=== PATIENT | female | born 1935 | race Caucasian/White ===

== ENCOUNTER 2019-09-11 17:37 | Emergency (ER) | payer MEDICARE, SELFPAY ==
--- NOTE | ~2019-09-11 | XR_ITS ---
EXAMINATION: XR sacrum coccyx min 2V DATE: 09/11/2019 18:40 INDICATION: Sacrum and coccyx pain post fall TECHNIQUE: AP view of the sacrum, AP view of the coccyx and lateral view of the sacrum and coccyx wer e obtained. COMPARISON: Lumbar spine radiographs dated 10/03/2017 FINDINGS: 3 mm anterolisthesis L5 on S1 mild disc height loss. No fractures. Mild bilateral sacroiliac osteoart hritis along with bilateral osteitis condensans ilii. And moderate osteitis pubis. Severe lumbar face t osteoarthritis at L4-L5 and L5-S1. Bilateral hip joint spaces are relatively preserved. IMPRESSION: 1. Degenerative skeletal changes as detailed above. No acute osseous abnormality. Reviewed, dictated and finalized at location A. 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 Degenerative skeletal changes as detailed above. No acute osseous abnormalit y.
[2019-09-11 17:44] VITALS: BP 122/54; PULSE 64; RESP 18; TEMP 36.4; O2SAT 98
--- NOTE | 2019-09-11 19:14 | ED.GENADULT ---
HPI - General Adult General Chief complaint: Fall Stated complaint: fall Time Seen by Provider: 09/11/19 17:49 History of Present Illness HPI narrative: Patient is an 84-year-old female who presents the ER status post fall. She was using her walker backing up to sit down when she lost her balance and fell onto her right buttock. She reports pain over her tailbone. No numbness or tingling to her lower extremities. She was on the ground for 15 minutes before somebody at the care center found her and called EMS. She denies striking her head or losing consciousness. Related Data Home Medications Medication Instructions Recorded Confirmed Lactobacillus acidophilus 1 tablet PO DAILY 06/21/19 08/06/19 acetaminophen 325 mg tablet 325 mg PO Q6H PRN 06/21/19 08/06/19 clopidogrel 75 mg tablet 75 mg PO DAILY 06/21/19 08/06/19 hydroxyzine HCl 25 mg tablet 25 mg PO ONCE tablet 06/21/19 08/06/19 inhalational spacing device #1 each 06/21/19 ipratropium 20 mcg-albuterol 100 2 puff INHALATION PRN PRN 06/21/19 08/06/19 mcg/actuation mist for inhalation irbesartan 150 mg tablet 150 mg PO DAILY 06/21/19 08/06/19 levothyroxine 75 mcg tablet 75 mcg PO DAILY 06/21/19 08/06/19 lidocaine 4 % topical patch 1 patch TOPICAL TID PRN each 06/21/19 08/06/19 memantine 5 mg tablet 5 mg PO QAM 06/21/19 08/06/19 metoprolol succinate 50 mg 50 mg PO DAILY 06/21/19 08/06/19 tablet,extended release 24 hr multivitamin 1 tablet PO DAILY 06/21/19 08/06/19 tolnaftate 1 % topical spray powder 1 spray TOPICAL BID 06/21/19 08/06/19 triamcinolone acetonide 0.1 % 1 applic TOPICAL TID 06/21/19 08/06/19 topical cream cetirizine 10 mg tablet 10 mg PO DAILY PRN tablet 06/26/19 08/06/19 citalopram 40 mg tablet 40 mg PO DAILY tablet 06/26/19 08/06/19 docusate sodium 100 mg capsule 100 mg PO DAILY 06/26/19 08/06/19 polyethylene glycol 3350 17 gram 17 gm PO DAILY 06/26/19 08/06/19 oral powder packet menthol [Biofreeze (menthol)] 1 applic TOPICAL PRN PRN 08/06/19 08/06/19 white petrolatum [Aquaphor Healing] 1 applic TOPICAL BID PRN 08/06/19 08/06/19 Allergies Allergy/AdvReac Type Severity Reaction Status Date / Time Penicillins Allergy Intermediate RASH Verified 09/10/19 11:44 PENTAZOCINE LACTATE Allergy Intermediate SAW STARS Uncoded 09/10/19 11:44 Review of Systems Review of Systems: All systems reviewed & are unremarkable except as noted in HPI and below Constitutional: Constitutional: Denies chills, Denies fever(s) and Denies weakness ENT: Denies nasal congestion and Denies sore throat Musculoskeletal: Musculoskeletal: Denies back pain, Denies joint swelling and Denies muscle cramps Comments: Tailbone pain Neurologic: Denies confusion, Denies focal weakness, Denies numbness and Denies weakness PMFSH Past Medical History Medical History (Updated 09/11/19 @ 19:24 by Landen Heath MD) Bilateral knee pain CVA (cerebral vascular accident) Dyslipidemia HTN (hypertension), benign Hypothyroid Surgical History Surgical History (Updated 09/11/19 @ 19:21 by Landen Heath MD) H/O: hysterectomy History of cholecystectomy History of tonsillectomy Social History Social History Smoking status: Never smoker Alcohol intake: never Substance use: never Substance use type: does not use Gender identity (if verbalized by the patient): Female Exam Narrative: Exam Narrative: GENERAL: Well-appearing, well-nourished, and in no acute distress. HEAD: Normocephalic, atraumatic. ENT: Mucous membranes moist. CHEST: Clear to auscultation. No respiratory distress. HEART: Regular rate and rhythm. Normal peripheral pulses. ABDOMEN: Soft, nontender, nondistende. EXTREMITIES: Normal range of motion and normal strength of bilateral lower extremities. Normal upper extremities. Back: No midline tenderness of the thoracic or lumbar spine. Mild tenderness over low midline sacrum without tenderness near t
[2019-09-11 20:01] VITALS: BP 137/54; PULSE 60; RESP 18; O2SAT 100
== END 2019-09-11 20:04 | disposition home or self-care (01) ==
PROVIDERS: Emergency Provider Emergency Medicine; PCP Family Medicine
DX: M54.5 Low back pain (principal); I11.0 Hypertensive heart disease with heart failure; I50.9 Heart failure, unspecified; Z86.73 Personal history of transient ischemic attack (TIA), and cerebral infarction without residual deficits; W19.XXXA Unspecified fall, initial encounter
CPT/HCPCS: 72220; 99283

== ENCOUNTER 2020-05-07 15:22 | Observation (INO) | payer MEDICARE, SELFPAY ==
[2020-05-07] VITALS (7 sets, daily range): BP systolic 119–169; BP diastolic 61–95; PULSE 76–98; RESP 16–18; TEMP 36.6–36.7; O2SAT 95–99; BMI 32.4
--- NOTE | ~2020-05-07 | MR_ITS ---
EXAMINATION: MR lumbar spine wo con DATE: 05/10/2020 07:28 INDICATION: Right hip and pelvic pain radiating throughout the medial right leg. Complete tear of the right iliopsoas tendon. TECHNIQUE: Magnetic resonance imaging (MRI) of the lumbar spine was performed without intravenous con trast. Sequences included sagittal T2-weighted FSE, sagittal T2-weighted FS FSE, sagittal T1-weighted FSE, and axial T2-weighted FSE. COMPARISON: Lumbar spine radiographs dated 10/03/2017 FINDINGS: 1-2 mm anterolisthesis L4 on L5 and 3 mm anterolisthesis L5 on S1. Vertebral body heights are normal. T1 hyperintense hemangioma at L1. Otherwise normal marrow signal. 9 x 5 mm increased fluid signal in tensity lesion with peripheral low T1 and T2 signal underlying the superior endplate of L3. Mild disc height loss at T10-T11 and L5-S1 mild disc desiccation with minimal disc height loss at L1-L2 throug h L4-L5. The conus medullaris terminates at L1. There is normal signal in the caudal spinal cord. Mustapha ateral T2 hyperintense renal cysts the larger on the right is partially visualized measuring at least 4.5 cm. Increasing along the partially visualized right psoas and visualized iliac is muscles consis tent with muscle strain. See separate pelvis MRI from one day prior for further detail. The following disc levels are specifically discussed: T12-L1: The disc does not extend beyond the endplate margin. There is mild bilateral facet joint oste oarthritis. There is no neural foraminal stenosis. There is no central canal stenosis. L1-L2: Disc is mildly bulging. There is mild bilateral facet joint osteoarthritis. There is no neural foraminal stenosis. There is minimal central canal stenosis. L2-L3: Disc is mildly bulging most prominent at the bilateral foraminal zones. There is mild bilatera l facet joint osteoarthritis. There is mild left and minimal right neural foraminal stenosis. There i s no central canal stenosis. L3-L4: Disc is mildly bulging most prominent at the bilateral foraminal zones. There is moderate bila teral facet joint osteoarthritis. There is mild bilateral neural foraminal stenosis. There is no cent ral canal stenosis. L4-L5: Disc is bulging. There is hypertrophy of the ligamentum flavum. There is severe bilateral face t joint osteoarthritis. There is mild bilateral neural foraminal stenosis. There is minimal central c anal stenosis. L5-S1: Disc is bulging. There is severe bilateral facet joint osteoarthritis. There is mild right ayaka ral foraminal stenosis. There is no central canal stenosis. IMPRESSION: 1. Mild to moderate lumbar spondylosis. 2. Subcentimeter indeterminate lesion underlying the superior endplate of L3 most likely representing either a small Schmorl's node or atypical hemangioma. If there is been history of prior malignancy w ould also include metastatic disease. If indicated could consider bone scan to assess for any additio nal bone lesions. 3. Edema in the right psoas and iliac is muscles consistent with muscle strain. See MRI report from 1 for further detail. Reviewed, dictated and finalized at location A. IMPRESSION: 1. Mild to moderate lumbar spondylosis. 2. Subcentimeter indeterminate lesion underlying the superior endplate of L3 mo st likely representing either a small Schmorl's node or atypical hemangioma. If there is been history of prior malignancy would also include metastatic diseas e. If indicated could consider bone scan to assess for any additional bone lesi ons. 3. Edema in the right psoas and iliac is muscles consistent with muscle strain. See MRI report from 05/09/2020 for further detail.
--- NOTE | ~2020-05-07 | CT_ITS ---
EXAMINATION: CT pelvis wo con EXAM DATE: 05/07/2020 18:36 INDICATION: Right hip and pelvic pain . TECHNIQUE: Spiral CT pelvis was performed without contrast. Axial, coronal and sagittal images wer e reviewed. The dose-length product (DLP) for this examination was 634.61 mGy-cm. The exposure was tailored according to patient size (auto mA exposure control), and iterative reconstruction (ASIR) wa s used as additional dose reduction technique. There is no prior study for comparison. FINDINGS: The appendix is normal. The uterus is not identified and has likely been surgically resecte d. Small to moderate right, small left inguinal fat-containing hernias. Bladder is unremarkable. Mode rate aortoiliac arterial sclerosis. Visualized bowel is unremarkable. There is mild bilateral hip angelica chas osteoarthritis. IMPRESSION: 1. No acute pelvic, hip findings. 2. Fat-containing inguinal hernias. 3. Mild hip osteoarthritis. Reviewed, dictated and finalized at location A.
--- NOTE | ~2020-05-07 | US_ITS ---
EXAMINATION: US venous doppler [facility] DATE: 05/08/2020 09:18 INDICATION: Right lower limb swelling. TECHNIQUE: Grayscale ultrasound images without and with compression and Doppler ultrasound images of the bilateral lower extremity veins were obtained. COMPARISON: None. FINDINGS: The visualized portions of right external iliac vein, common femoral vein, profunda (deep) femoral ve in, femoral vein, popliteal vein, peroneal veins, posterior tibial veins, and greater saphenous vein outflow are patent. The visualized portions of left common femoral vein, profunda femoral vein, femoral vein, popliteal v ein, peroneal veins, posterior tibial veins, and greater saphenous vein outflow are patent. IMPRESSION: 1. No deep venous thrombosis. Reviewed, dictated and finalized at location A.
--- NOTE | ~2020-05-07 | XR_ITS ---
EXAMINATION: XR knee RT 3V EXAM DATE: 05/07/2020 16:02 INDICATION: No known recent injury provided at this time. Pain of the right knee. TECHNIQUE: Three projections of the right knee. Comparison is made to prior examination from 03/20/2013 . FINDINGS: No evidence osteochondral defect or joint body in the right knee joint. There is a small joint effusion. There is mild to moderate tricompartmental primary osteoarthritis, mild progression compared to 2012. There are no acute fractures or dislocations identified. There is no subcutaneous gas. The soft tissue is unremarkable. There are no radiopaque foreign bodies. IMPRESSION: 1. Mild to moderate radius arthritis. 2. Small joint effusion. Reviewed, dictated and finalized at location A.
--- NOTE | ~2020-05-07 | XR_ITS ---
EXAMINATION: XR foot RT 2V EXAM DATE: 05/08/2020 18:15 INDICATION: Right foot pain, no known injury. Foot concordant. TECHNIQUE: Right foot dorsoplantar, lateral projections obtained and reviewed. There is no prior st udy for comparison. FINDINGS: Surgical changes from prior bunionectomy, and also a cerclage wire of the 1st proximal pha lanx. There are no bony erosions identified. Foot appears to be extended. No periosteal reaction or b and of sclerosis to suggest subacute stress fracture. There are no acute fractures or dislocations id entified. There is no subcutaneous gas. The soft tissue is unremarkable. IMPRESSION: Surgical changes 1st MTP region. Reviewed, dictated and finalized at location A.
--- NOTE | ~2020-05-07 | MR_ITS ---
EXAMINATION: MR pelvis wo con DATE: 05/09/2020 10:21 INDICATION: Right hip and pelvic pain. Right iliopsoas hematoma. TECHNIQUE: Magnetic resonance imaging (MRI) of the pelvis was performed without intravenous contrast. Sequences included axial, coronal, and sagittal T1-weighted FSE and T2-weighted FS FSE. COMPARISON: Pelvis CT 05/07/2020 FINDINGS: There are bilateral inguinal hernias containing fat. The rectum is distended. There is a complete tea r of the right iliopsoas tendon at its attachment at the lesser trochanter of proximal right femur wi th a gap of 4.7 cm. There is hematoma along the torn tendon. There is hematoma in the right iliacus a nd psoas muscles along the myotendinous junctions. There is mild osteoarthritis of the hips. The glut eal tendons are normal. The hamstring origins are normal. IMPRESSION: 1. Complete tear of right iliopsoas tendon at the lesser trochanter of proximal right femur. Grade 2 strains of the right iliacus and psoas muscles. Reviewed, dictated and finalized at location A.
--- NOTE | ~2020-05-07 | XR_ITS ---
XR hip RT 2V w AP pelvis 05/07/2020 16:02 Indication: Hip pain and pelvic pain for 3 weeks Procedure: AP view of the pelvis Comparison: 09/11/2019 Findings: Pelvic rings are intact. Sacral foramen are symmetric. No fracture or traumatic malalignmen t. There is mild osteoarthritis of the sacroiliac joints and bilateral osteitis condense sense iliac. There is osteitis pubis. There is lower lumbar facet hypertrophy. Impression: 1: No acute bone or joint abnormality. Reviewed, dictated and finalized at location B. Impression: 1: No acute bone or joint abnormality.
[2020-05-07] MEDS: MORPHINE SULFATE (*CRX) 4 MG/ML INJ IV PUSH (15:39)
[2020-05-07 17:32] LABS: Basophils Percent Auto 0.3 % (0.2-1.2); Eosinophils Absolute Auto 0.2 K/mm3 (0-0.3); Eosinophils Percent Auto 1.4 % (0-4.4); Hematocrit 38.9 % (37.0-47.0); Immature Granulocyte Absolute 0.03 K/mm3 (0.00-0.031); Immature Granulocyte Percent A 0.3 % (0-0.5); Lymphocytes Absolute Auto 2.07 K/mm3 (0.9-3.2); Lymphocytes Percent Auto 18.3 % (18.3-44.2); Mean Corpuscular HGB Conc 33.4 g/dl (32-36); Mean Corpuscular Volume 92.6 fl (80-100); Mean Platelet Volume 9.6 fl (7.4-10.4); Monocytes Absolute Auto 1.2 K/mm3 (0.1-0.6); Monocytes Percent Auto 10.5 % (2.6-8.5); Neutrophils Absolute Auto 7.8 K/mm3 (1.3-6.7); Neutrophils Percent Auto 69.2 % (45.5-73.1); Platelet Count Result 288 k/mm3 (150-375); Red Cell Distribution Width 12.6 % (11.5-14.5); White Blood Count 11.3 K/mm3 (4.5-10.0)
[2020-05-07 17:43] LABS: Anion Gap 13 mmol/L (8-16); Blood Urea Nitrogen 32 mg/dL (7-17); Calcium 10.3 mg/dL (8.4-10.2); Carbon Dioxide 26 mmol/L (22-30); Chloride 99 mmol/L (98-107); Estimated CRCL calculation 25 ml/min; Estimated Glomerular Filt Rate 29; Glucose 109 mg/dL (65-105); Potassium 3.9 mmol/L (3.4-5.0); Sodium 138 mmol/L (137-145)
[2020-05-07 17:51] LABS: Add Urine Microscopic? YES; Appearance Urine Cloudy (Clear); Bacteria Urine 4+ /hpf; Bilirubin Urine Negative (Negative); Blood Urine Negative (Negative); Color Urine Yellow (Yellow); Glucose Urine UA Negative (Negative); Hyaline Casts Urine 30-49 /lpf; Ketones Urine Negative (Negative); Leukocyte Esterase Ur 2+ LEU/UL (Negative); Mucus Urine Rare /lpf; Nitrate Urine Negative (Negative); Protein Urine 1+ mg/dL (Negative); Specific Grav Ur 1.027 (1.001-1.035); Squamous Epithelial Cell Urine Few /hpf (Few); Urobilinogen Urine Negative mg/dL (<2.0); WBC Clumps Urine Present /HPF
--- NOTE | 2020-05-07 18:15 | ED.GENADULT ---
HPI - General Adult General Chief complaint: Extremity Injury, Lower Stated complaint: R LEG PAIN Time Seen by Provider: 05/07/20 15:27 History of Present Illness HPI narrative: Patient is an 84-year-old female who presents ER with right lower extremity pain. Reports its in her inguinal region and right hip and goes down to her knee. Reports ongoing for 3 weeks. Denies trauma. Worse with any type of movement. No numbness or tingling. Unable to describe alleviating factors but has her hip partially in forward flexion and her right knee flexed. Patient has some dementia so she has difficulty giving a specific history regarding her pain. Related Data Home Medications Medication Instructions Recorded Confirmed acetaminophen 325 mg tablet 325 mg PO Q6H PRN 06/21/19 08/06/19 inhalational spacing device #1 each 06/21/19 irbesartan 150 mg tablet 150 mg PO DAILY 06/21/19 08/06/19 memantine 5 mg tablet 5 mg PO QAM 06/21/19 08/06/19 multivitamin 1 tablet PO DAILY 06/21/19 08/06/19 triamcinolone acetonide 0.1 % 1 applic TOPICAL TID 06/21/19 08/06/19 topical cream cetirizine 10 mg tablet 10 mg PO DAILY PRN tablet 06/26/19 08/06/19 citalopram 40 mg tablet 40 mg PO DAILY tablet 06/26/19 08/06/19 docusate sodium 100 mg capsule 100 mg PO DAILY 06/26/19 08/06/19 polyethylene glycol 3350 17 gram 17 gm PO DAILY 06/26/19 08/06/19 oral powder packet menthol [Biofreeze (menthol)] 1 applic TOPICAL PRN PRN 08/06/19 08/06/19 white petrolatum [Aquaphor Healing] 1 applic TOPICAL BID PRN 08/06/19 08/06/19 Allergies Allergy/AdvReac Type Severity Reaction Status Date / Time Penicillins Allergy Intermediate RASH Verified 05/07/20 15:28 PENTAZOCINE LACTATE Allergy Intermediate SAW STARS Uncoded 05/07/20 15:28 Review of Systems Review of Systems: ROS unobtainable: Yes unobtainable due to medical condition Musculoskeletal: Musculoskeletal: Denies back pain, Reports arthralgias and Denies joint swelling Neurologic: Denies focal weakness and Denies numbness [facility] Past Medical History Medical History (Updated 05/07/20 @ 18:48 by Landen Heath MD) Bilateral knee pain CVA (cerebral vascular accident) Dyslipidemia HTN (hypertension), benign Hypothyroid Surgical History Surgical History H/O: hysterectomy History of cholecystectomy History of tonsillectomy Social History Social History Smoking status: Never smoker Alcohol intake: never Substance use: never Substance use type: does not use Gender identity (if verbalized by the patient): Female Exam Narrative: Exam Narrative: GENERAL: Uncomfortable-appearing, well-nourished, and in no acute distress. HEAD: Normocephalic, atraumatic. ENT: Mucous membranes moist. CHEST: Clear to auscultation. No respiratory distress. HEART: Regular rate and rhythm. Normal peripheral pulses. ABDOMEN: Soft, nontender, nondistended. No inguinal mass/hernia. EXTREMITIES: Limited ROM at the right hip 2/2 pain with mild diffuse pain, no palpable spasm. Painless ROM at right knee and ankle, but has pain with palpation at the knee but no effusion. No redness. 1+ edema. SKIN: Warm, dry, no rash. NEURO: Alert and oriented x 2-3. Sensation intact in RLE. Course Course Emergency Course: Will admit to the hospital service for intractable pain. Still cannot adequately range her leg at the right hip. Will perform inpatient ultrasound rule out DVT. Mild improvement with morphine but still with discomfort so Valium will be given in case there is a spasmodic component to this. Vital Signs Vital signs: Vital Signs Temperature 97.8 F 05/07/20 15:22 Pulse Rate 91 05/07/20 15:22 Respiratory Rate 18 05/07/20 15:22 Blood Pressure 153/84 H 05/07/20 15:22 Pulse Oximetry 97 05/07/20 15:22 Temperature 97.8 F 05/07/20 16:09 Pulse Rate 78 05/07/20 18:18 Respiratory Rate 1
[2020-05-07] MEDS: diazePAM INJ (*CRX) 10 MG/2 ML SYRINGE 2.5 MG IV PUSH (19:07)
--- NOTE | 2020-05-07 19:26 | PM.IMHP ---
H&P: HPI History of Present Illness Date/Time: 05/07/20 19:26 Chief complaint: intractable hip pain Narrative: Mckayla Dailey is a 84 year old female from [facility] with past medical history dementia, congestive heart failure, degenerative joint disease, depression who presents to the ED with complaints of right lower extremity pain. She denies any trauma to her legs, pain is progressively got worse last 2 weeks. patient's history is limited as she has dementia. her dementia is somewhat early as she knows as she lives in [place] however she was telling every provider a different time of onset for her pain. She denies any urinary complaints, polyuria, dysuria. she states she normally walks and and lives at the assisted living at [place]. In the ED: Knee x-ray shows [id number] radius arthritis, small joint effusion. hip x-ray shows no abnormality. Pelvic CT shows mild hip osteoarthritis and fat containing inguinal hernia , UA negative, creatinine at 1.7, other labs normal. Her vitals are stable other hypertension blood pressure 169/80. Patient admitted for observation for right leg pain. Review of Systems Review of Systems: Narrative: Constitutional: No Fever, No Chills, No Night Sweats, No Fatigue, No Malaise ENT/Mouth: No Hearing Changes, No Ear Pain, No Nasal Congestion, No Sinus Pain, No Hoarseness, No sore throat, No Rhinorrhea, No Swallowing Difficulty Eyes: No Eye Pain, No Redness, No Vision Changes Cardiovascular: No Chest Pain, No Palpitations, No Dyspnea on Exertion, No Orthopnea, No Claudication, No Edema Respiratory: No Cough, No Sputum, No Wheezing, No Shortness of Breath Gastrointestinal: No Nausea, No Vomiting, No Diarrhea, No Constipation, No Abdominal Pain, No Heartburn, No Hematochezia, No Melena Genitourinary: No Dysuria, No Urinary Frequency, No Hematuria, No Urinary Incontinence, No Urgency Musculoskeletal: Complains of right lower extremity pain, unable to extend her leg or move in any direction Skin: No Skin Lesions, No Pruritis, No Hair Changes Neuro: No Numbness, No Paresthesias, No Loss of Consciousness, No Syncope, No Dizziness, No Headache Psych: No Anxiety/Panic, No Depression, No Insomnia Heme: No Bruising, No Bleeding Lymph: No Adenopathy Endocrine: No Polyuria, No Polydipsia, No Temperature Intolerance [facility] Past Medical History Medical History (Updated 05/07/20 @ 20:41 by Edna Mccord DO) Bilateral knee pain CVA (cerebral vascular accident) Dyslipidemia HTN (hypertension), benign Hypothyroid Surgical History Surgical History H/O: hysterectomy History of cholecystectomy History of tonsillectomy Social History Social History Smoking status: Never smoker Alcohol intake: never Substance use: never Substance use type: does not use Gender identity (if verbalized by the patient): Female Meds Home Medications and Allergies Home Medications Medication Instructions Recorded Confirmed Type acetaminophen 325 mg tablet 325 mg PO Q6H PRN 06/21/19 08/06/19 History inhalational spacing device #1 each 06/21/19 History irbesartan 150 mg tablet 150 mg PO DAILY 06/21/19 08/06/19 History memantine 5 mg tablet 5 mg PO QAM 06/21/19 08/06/19 History multivitamin 1 tablet PO DAILY 06/21/19 08/06/19 History triamcinolone acetonide 0.1 % 1 applic TOPICAL TID 06/21/19 08/06/19 History topical cream cetirizine 10 mg tablet 10 mg PO DAILY PRN tablet 06/26/19 08/06/19 History citalopram 40 mg tablet 40 mg PO DAILY tablet 06/26/19 08/06/19 History docusate sodium 100 mg capsule 100 mg PO DAILY 06/26/19 08/06/19 History polyethylene glycol 3350 17 gram 17 gm PO DAILY 06/26/19 08/06/19 History oral powder packet chlorhexidine gluconate 4 % 1 applic TOPICAL ONCE #3785 ml 08/06/19 08/06/19 Rx topical liquid menthol [Biofreeze (men
--- NOTE | 2020-05-07 19:53 | ADMGEN ---
This patient, Mckayla Dailey, was admitted to [address] [place] [address] Room 333-01. Patient/family oriented to hospital policies and general routines including ID bracelet, bed and alarms, visiting hours, pain management, procedures, bathroom and other care routines, personal items, smoking policy, room service/diet, and visiting hours. Information on how to activate the Rapid Response Team has been discussed. Patient/Family are encouraged to report perceived risks to care and to ask questions if they do not understand what they are told or what they should do.
[2020-05-07] MEDS: CYCLOBENZAPRINE HCL 5 MG TABLET PO (21:38)
[2020-05-07] MEDS: SODIUM CHLORIDE 0.9% IV 1,000 ML 75 ML IV CONT (22:24)
[2020-05-08] MEDS: LEVOTHYROXINE SODIUM 75 MCG TABLET PO (05:15)
[2020-05-08] MEDS: CYCLOBENZAPRINE HCL 5 MG TABLET PO ×3 (05:15→20:38)
[2020-05-08] MEDS: TRIAMCINOLONE ACET 0.1% CREAM 15 GM TUBE 1 APPLIC TOPICAL ×3 (05:48→20:53)
[2020-05-08 06:00] VITALS: BP 161/77; PULSE 86; RESP 18; TEMP 36.7; O2SAT 100
[2020-05-08 06:07] LABS: Hematocrit 34.7 % (37.0-47.0); Hemoglobin 11.7 g/dL (12.0-15.0); Mean Corpuscular HGB Conc 33.7 g/dl (32-36); Mean Corpuscular Hemoglobin 30.2 pg (26-34); Mean Corpuscular Volume 89.7 fl (80-100); Mean Platelet Volume 9.1 fl (7.4-10.4); Platelet Count Result 271 k/mm3 (150-375); Red Blood Count 3.87 M/mm3 (4.2-5.4); Red Cell Distribution Width 12.2 % (11.5-14.5); White Blood Count 10.3 K/mm3 (4.5-10.0)
[2020-05-08 06:41] LABS: Anion Gap 9 mmol/L (8-16); Blood Urea Nitrogen 31 mg/dL (7-17); Calcium 9.2 mg/dL (8.4-10.2); Carbon Dioxide 28 mmol/L (22-30); Chloride 101 mmol/L (98-107); Estimated CRCL calculation 30 ml/min; Estimated Glomerular Filt Rate 36; Glucose 102 mg/dL (65-105); Magnesium 1.9 mg/dL (1.6-2.3); Potassium 4.1 mmol/L (3.4-5.0); Sodium 138 mmol/L (137-145)
[2020-05-08] MEDS: ACETAMINOPHEN 325 MG TABLET 650 MG PO (07:35)
[2020-05-08] MEDS: EUCERIN CREAM 120 GM JAR 1 APPLIC TOPICAL (09:00)
[2020-05-08] MEDS: DOCUSATE SODIUM 100 MG CAPSULE PO (09:00)
[2020-05-08] MEDS: CLOPIDOGREL BISULFATE 75 MG TABLET PO (09:00)
[2020-05-08 09:29] LABS: Folic Acid > 20.0 ng/mL (2.76->20)
[2020-05-08] MEDS: IRBESARTAN 150 MG TABLET PO (09:51)
[2020-05-08] MEDS: ACIDOPHILUS/BULGARICUS CHEWABLE TABLET 1 TABLET PO (09:51)
[2020-05-08] MEDS: MEMANTINE 5 MG TABLET PO (09:51)
[2020-05-08] MEDS: ENOXAPARIN 30 MG/0.3 ML SYRINGE SUB-Q (09:52)
[2020-05-08] MEDS: MULTIVITAMINS THERAPEUTIC TAB (*BKC) 1 TABLET PO (09:52)
[2020-05-08] MEDS: METOPROLOL SUCCINATE EXT REL 50 MG TABCR PO (09:52)
[2020-05-08] MEDS: LORATADINE 10 MG TABLET PO (09:52)
[2020-05-08 11:08] LABS: Thyroid Stimulating Hormone Reflex 0.832 uIU/mL (0.465-4.68)
[2020-05-08 14:00] VITALS: BP 98/57; PULSE 78; RESP 16; TEMP 36.5; O2SAT 99
--- NOTE | 2020-05-08 14:00 | PM.IMPN ---
Progress Note: A&P Assessment and Plan (1) Acute pain of right hip: Code(s): M25.551 - Pain in right hip Status: Acute Assessment and Plan: Plain films of the right hip and pelvis showed mild osteoarthritis of the SI joints and bilateral osteitis, chronic, without acute fracture. CT pelvis was reviewed by radiology and there is asymmetric swelling of the right iliacus muscle centered at its confluence with the right psoas muscle, suspicious for intramuscular hematoma vs intramuscular mass. The patient is complaining of pain that radiates down the right leg and she points to the right thigh. SLR on the right is positive and she has tenderness to the SI joint. She has a hx of chronic low back pain and may have lumbar radiculopathy. CT pelvis demonstrated moderate lower lumbar spondylosis with mild disc height loss, disc bulges causing mild central canal stenosis at L4-L5 and L5-S1 with severe bilateral facet osteoarthritis resulting in mild to moderate neural foraminal stenosis on the right at L4-L5 and mild neural foraminal stenosis bilaterally at L5-S1. Venous doppler was negative for DVT and she has bounding pedal and femoral pulses so I do not suspect vascular etiology. She has no acute joint warmth or tenderness. She has no inguinal lymphadenopathy. At this time, I feel pelvic MRI is prudent for further evaluation of the possible hematoma vs. intramuscular mass. If this is unrevealing, will plan to proceed with MRI lumbar spine. Continue supportive care with Kpad, analgesics as needed, flexeril for spasm, and will add gabapentin for concern for neuropathic pain given radiculopathy. She will benefit from EMG/NCS in the outpatient setting and I have encouraged her to follow-up with her neurologist to have these studies completed. She will likely benefit from referral to pain management. (2) DJD (degenerative joint disease) of knee: Qualifiers: Laterality: bilateral Osteoarthritis type: primary Qualified Code(s): M17.0 - Bilateral primary osteoarthritis of knee Code(s): M17.10 - Unilateral primary osteoarthritis, unspecified knee Status: Acute Assessment and Plan: Plain films of the right knee demonstrated mild to moderate osteoarthritis with small effusion and no acute fracture. She has radicular RLE pain but it is not localized to the knee and she does not complain of right knee pain. She sees Dr. Newton for Gelsyn injections. She reports no acute knee pain at this time. Continue conservative treatment with Kpad and analgesics as needed. Continue outpatient follow-up with Dr. Newton. (3) Bacteriuria: Code(s): R82.71 - Bacteriuria Status: Acute Assessment and Plan: Urinalysis is suspicious for UTI although she is asymptomatic with no urinary complaints. Await urine culture. Hold off on antibiotics for now. Continue to monitor for any new symptoms. (4) Muscle spasm: Code(s): M62.838 - Other muscle spasm Status: Acute Assessment and Plan: Continue conservative therapy with Kpad, cyclobenzaprine, analgesics, and PT/OT. (5) Acute kidney injury superimposed on chronic kidney disease: Code(s): N17.9 - Acute kidney failure, unspecified; N18.9 - Chronic kidney disease, unspecified Status: Acute Assessment and Plan: BUN 32 and Cr 1.7 at presentation to the emergency department. Baseline Cr appears to be 1.3-1.9 and GRR 25-39 on review of prior labs. She received gentle IV hydration. Cr improved to 1.4 and BUN 31. She is tolerating PO intake well and IV fluids will be discontinued. Continue to monitor. Avoid nephrotoxins and renally dose medications. (6) Dementia: Code(s): F03.90 - Unspecified dementia without behavioral disturbance Status: Inactive Assessment and Plan: Continue memantine. (7) Depression: Code(s): F32.9 - Major depressive disorder, single episode, unspecified Status: [place]
[2020-05-08] MEDS: CITALOPRAM HYDROBROMIDE 20 MG TABLET 40 MG PO (17:22)
[2020-05-08] MEDS: GABAPENTIN 100 MG CAPSULE PO (17:27)
[2020-05-08 22:00] VITALS: BP 123/52; PULSE 75; RESP 18; TEMP 36.9; O2SAT 93
[2020-05-09] MEDS: LEVOTHYROXINE SODIUM 75 MCG TABLET PO (05:53)
[2020-05-09] MEDS: TRIAMCINOLONE ACET 0.1% CREAM 15 GM TUBE 1 APPLIC TOPICAL ×3 (05:54→20:58)
[2020-05-09] MEDS: CYCLOBENZAPRINE HCL 5 MG TABLET PO ×2 (05:58→13:17)
[2020-05-09 06:00] VITALS: BP 137/57; PULSE 73; RESP 20; TEMP 36.7; O2SAT 96
[2020-05-09 08:49] LABS: Basophils Percent Auto 0.2 % (0.2-1.2); Eosinophils Absolute Auto 0.3 K/mm3 (0-0.3); Eosinophils Percent Auto 3.3 % (0-4.4); Hematocrit 32.2 % (37.0-47.0); Hemoglobin 10.8 g/dL (12.0-15.0); Immature Granulocyte Absolute 0.02 K/mm3 (0.00-0.031); Immature Granulocyte Percent A 0.2 % (0-0.5); Lymphocytes Absolute Auto 1.83 K/mm3 (0.9-3.2); Lymphocytes Percent Auto 20.7 % (18.3-44.2); Mean Corpuscular HGB Conc 33.5 g/dl (32-36); Mean Corpuscular Hemoglobin 30.9 pg (26-34); Monocytes Absolute Auto 1.2 K/mm3 (0.1-0.6); Monocytes Percent Auto 13.3 % (2.6-8.5); Neutrophils Absolute Auto 5.5 K/mm3 (1.3-6.7); Neutrophils Percent Auto 62.3 % (45.5-73.1); Platelet Count Result 228 k/mm3 (150-375); Red Cell Distribution Width 12.4 % (11.5-14.5); White Blood Count 8.8 K/mm3 (4.5-10.0)
[2020-05-09 08:51] LABS: Anion Gap 5 mmol/L (8-16); Blood Urea Nitrogen 25 mg/dL (7-17); Calcium 8.8 mg/dL (8.4-10.2); Carbon Dioxide 30 mmol/L (22-30); Chloride 104 mmol/L (98-107); Estimated CRCL calculation 32 ml/min; Estimated Glomerular Filt Rate 39; Glucose 99 mg/dL (65-105); Sodium 139 mmol/L (137-145)
[2020-05-09] MEDS: MULTIVITAMINS THERAPEUTIC TAB (*BKC) 1 TABLET PO (09:11)
[2020-05-09] MEDS: GABAPENTIN 100 MG CAPSULE PO ×3 (09:11→16:34)
[2020-05-09] MEDS: CITALOPRAM HYDROBROMIDE 20 MG TABLET 40 MG PO (09:11)
[2020-05-09] MEDS: DOCUSATE SODIUM 100 MG CAPSULE PO ×2 (09:11→16:34)
[2020-05-09] MEDS: ACIDOPHILUS/BULGARICUS CHEWABLE TABLET 1 TABLET PO (09:11)
[2020-05-09] MEDS: IRBESARTAN 150 MG TABLET PO (09:11)
[2020-05-09] MEDS: CLOPIDOGREL BISULFATE 75 MG TABLET PO (09:11)
[2020-05-09] MEDS: LIDOCAINE 5% PATCH 1 PATCH TRANSDERM (09:12)
[2020-05-09] MEDS: MEMANTINE 5 MG TABLET PO (09:12)
[2020-05-09] MEDS: EUCERIN CREAM 120 GM JAR 1 APPLIC TOPICAL (09:12)
[2020-05-09 09:13] VITALS: PULSE 70
[2020-05-09] MEDS: METOPROLOL SUCCINATE EXT REL 50 MG TABCR PO (09:13)
--- NOTE | 2020-05-09 09:34 | PC.NURSE ---
Pt to MRI per stretcher.
--- NOTE | 2020-05-09 09:49 | PCOTNOTE ---
Patient having MRI, will attempt later if time permits to see for skilled OT.
--- NOTE | 2020-05-09 10:30 | PCPTNOTE ---
Patient out of room for testing in AM and unable to be seen for PT.
--- NOTE | 2020-05-09 10:41 | PC.NURSE ---
Pt returned from MRI per stretcher.
[2020-05-09 13:07] LABS: SARS-CoV-2 RNA PCR Negative
[2020-05-09] MEDS: ACETAMINOPHEN 500 MG TABLET 1000 MG PO ×2 (13:15→18:13)
--- NOTE | 2020-05-09 13:21 | PC.NURSE ---
Methylprednisolone was not given at 1323 per Ar[facility]. Two orthopedics were consulted. Will verify with Lamar if he wants this given since it was per Scheres recommendation.
--- NOTE | 2020-05-09 13:52 | PM.IMPN ---
Progress Note: A&P Assessment and Plan (1) Strain of right iliopsoas muscle: Code(s): S76.911A - Strain of unspecified muscles, fascia and tendons at thigh level, right thigh, initial encounter Status: Acute Assessment and Plan: Pelvis MRI given CT pelvis findings of asymmetric swelling of the right iliacus muscle in the setting of severe RLE groin/thigh/hip pain with weakness with right hip flexion. Pelvis MRI demonstrates complete tear of the right iliopsoas tendon at the lesser trochanter of the proximal right femur and grade 2 strain of the right iliacus and psoas muscle. There is a hematoma along the torn tendon. Etiology is unclear and may be spontaneous. She reports hx of falls in the past but does not note a precipitating fall 2 weeks ago when the pain started. I have asked orthopedic surgery to see her in consultation and their input is greatly appreciated. Add medrol dose pack. Plan to continue supportive care with Kpad, analgesics as needed, flexaril, and gabapentin due to concern for radicular pain. She will need to continue PT/OT and will likely benefit from aggressive PT/OT at discharge. (will await orthopedic surgery input) MRI lumbar spine was ordered for further evaluation given new findings and right foot weakness. She will benefit from EMG/NCS in the outpatient setting and I have encouraged her to follow-up with her neurologist to have these studies completed. She will likely benefit from referral to pain management. Await further orthopedic surgery input. (2) Hematoma of right iliopsoas muscle: Code(s): S70.11XA - Contusion of right thigh, initial encounter Status: Acute Assessment and Plan: As above. H&H are stable with no evidence of ongoing bleeding. Lovenox was discontinued. (3) Weakness of right foot: Code(s): R29.898 - Other symptoms and signs involving the musculoskeletal system Status: Acute Assessment and Plan: She has difficulty with right foot dorsiflexion and can only do this minimally compared to the left foot. This is possibly secondary to lumbar radiculopathy. She has known spondylosis with mild to moderate neural foraminal stenosis. MRI lumbar spine was ordered and pending. Dr. Newton with orthopedic surgery has been consulted as well. Appreciate orthopedic surgery input. (4) DJD (degenerative joint disease) of knee: Qualifiers: Laterality: bilateral Osteoarthritis type: primary Qualified Code(s): M17.0 - Bilateral primary osteoarthritis of knee Code(s): M17.10 - Unilateral primary osteoarthritis, unspecified knee Status: Acute Assessment and Plan: Plain films of the right knee demonstrated mild to moderate osteoarthritis with small effusion and no acute fracture. She has radicular RLE pain but it is not localized to the knee and she does not complain of right knee pain. She sees Dr. Newton for Gelsyn injections. She reports no acute knee pain at this time. Continue conservative treatment with Kpad and analgesics as needed. Continue outpatient follow-up with Dr. Newton. (5) Bacteriuria: Code(s): R82.71 - Bacteriuria Status: Acute Assessment and Plan: Urinalysis is suspicious for UTI and urine culture demonstrates E. coli which is pansensitive with the exception of cefazolin. I discussed that this seems consistent with asymptomatic bacteruria. Due to concerns regarding her ability to fully articulate her symptoms, her daughter would prefer that we treat this. I discussed the risks of not treating vs risks of antibiotics. Plan to treat with cefdinir for 5 days after discussion with the patient and her daughter. (6) Muscle spasm: Code(s): M62.838 - Other muscle spasm Status: Acute Assessment and Plan: Continue conservative therapy with Kpad, cyclobenzaprine, analgesics, and PT/OT. (7) Acute kidney injury superimposed on chronic kidney disease: Code(s):
--- NOTE | 2020-05-09 13:57 | PCOTNOTE ---
Awaiting orthopedic consult, patient not seen for this reason this date for skilled OT.
[2020-05-09] MEDS: methylPREDNISolone (MEDROL) DOSEPACK 4 MG TABLETS PO ×4 (14:00→20:58)
[2020-05-09] MEDS: diazePAM (*CRX) 5 MG TABLET PO (16:34)
[2020-05-09] MEDS: CEFDINIR 300 MG CAPSULE PO (20:58)
[2020-05-09 22:00] VITALS: BP 113/51; PULSE 61; RESP 16; TEMP 36.6; O2SAT 95
[2020-05-10] MEDS: ACETAMINOPHEN 500 MG TABLET 1000 MG PO ×4 (00:32→18:14)
[2020-05-10 06:00] VITALS: BP 147/59; PULSE 66; RESP 16; TEMP 36.6; O2SAT 95
[2020-05-10 06:26] LABS: Hematocrit 32.6 % (37.0-47.0); Hemoglobin 10.9 g/dL (12.0-15.0); Mean Corpuscular HGB Conc 33.4 g/dl (32-36); Mean Corpuscular Volume 92.6 fl (80-100); Mean Platelet Volume 9.2 fl (7.4-10.4); Platelet Count Result 239 k/mm3 (150-375); Red Blood Count 3.52 M/mm3 (4.2-5.4); Red Cell Distribution Width 12.1 % (11.5-14.5); White Blood Count 8.4 K/mm3 (4.5-10.0)
[2020-05-10] MEDS: TRIAMCINOLONE ACET 0.1% CREAM 15 GM TUBE 1 APPLIC TOPICAL ×3 (06:32→20:43)
[2020-05-10] MEDS: methylPREDNISolone (MEDROL) DOSEPACK 4 MG TABLETS PO ×4 (06:32→20:44)
[2020-05-10] MEDS: LEVOTHYROXINE SODIUM 75 MCG TABLET PO (06:32)
[2020-05-10 06:37] LABS: Anion Gap 6 mmol/L (8-16); Blood Urea Nitrogen 29 mg/dL (7-17); CRP 3.2 mg/dL (<1.0); Carbon Dioxide 27 mmol/L (22-30); Chloride 102 mmol/L (98-107); Estimated CRCL calculation 32 ml/min; Estimated Glomerular Filt Rate 39; Glucose 135 mg/dL (65-105); Sodium 135 mmol/L (137-145)
[2020-05-10] MEDS: CLOPIDOGREL BISULFATE 75 MG TABLET PO (08:22)
[2020-05-10] MEDS: CEFDINIR 300 MG CAPSULE PO ×2 (08:22→20:44)
[2020-05-10] MEDS: CITALOPRAM HYDROBROMIDE 20 MG TABLET 40 MG PO (08:22)
[2020-05-10] MEDS: IRBESARTAN 150 MG TABLET PO (08:22)
[2020-05-10] MEDS: LIDOCAINE 5% PATCH 1 PATCH TRANSDERM (08:22)
[2020-05-10 08:23] VITALS: PULSE 68
[2020-05-10] MEDS: METOPROLOL SUCCINATE EXT REL 50 MG TABCR PO (08:23)
[2020-05-10] MEDS: MEMANTINE 5 MG TABLET PO (08:23)
[2020-05-10] MEDS: MULTIVITAMINS THERAPEUTIC TAB (*BKC) 1 TABLET PO (08:24)
[2020-05-10] MEDS: EUCERIN CREAM 120 GM JAR 1 APPLIC TOPICAL (08:24)
[2020-05-10] MEDS: ACIDOPHILUS/BULGARICUS CHEWABLE TABLET 1 TABLET PO (08:25)
[2020-05-10] MEDS: DOCUSATE SODIUM 100 MG CAPSULE PO ×2 (08:26→16:20)
[2020-05-10] MEDS: polyethylene glycoL 3350 17 GM POWD.PACK PO (12:10)
--- NOTE | 2020-05-10 12:45 | PM.IMHP ---
H&P: HPI History of Present Illness Date/Time: 05/10/20 12:45 Chief complaint: intractable hip pain Narrative: Mckayla Dailey is a 85 year old female who was admitted for severe right thigh pain and leg pain. she has no history of recent trauma. her pain is intermittent and progressive. she denies and cp or sob. denies any fever or chills. hip mri show ilopsoas tear which appears to be of unknown date. ther is no hip fracture or any other explanation for her thigh pain. lumbar mri is still pending. today she has taken a turn for much better. she has minimal pain. I started her on a medol dose pack yesterda. she will continue with pt for now Review of Systems Constitutional: Constitutional: Reports as per HPI Eyes: Eyes: Reports no additional eye complaints ENT: Reports system reviewed and no additional complaints, except as documented Cardiovascular: Cardiovascular: Reports no additional cardiovascular complaints Respiratory: Respiratory: Reports no additional respiratory complaints Gastrointestinal: Gastrointestinal: Reports constipation Genitourinary: Genitourinary: Reports no additional female genitourinary complaints Musculoskeletal: Musculoskeletal: Reports as per HPI Integumentary/Breasts: Skin/Breast: Reports system reviewed and no additional complaints, except as docu Neurologic: Reports system reviewed and no additional complaints, except as documented Psychiatric: Psychiatric: Reports no additional psychiatric complaints Hematologic/Lymphatic: Hematologic/Lymphatic: Reports no additional hematologic/lymphatic complaints Allergic/Immunologic: Allergic/Immunologic: Reports no additional allergic/immunologic complaints [facility] Past Medical History Medical History Bilateral knee pain CVA (cerebral vascular accident) Dementia Depression Dyslipidemia HTN (hypertension), benign Hypothyroid Surgical History Surgical History H/O: hysterectomy History of cholecystectomy History of tonsillectomy Social History Social History Smoking status: Never smoker Alcohol intake: never Substance use: never Substance use type: does not use Gender identity (if verbalized by the patient): Female Spiritual care concerns: No Meds Home Medications and Allergies Home Medications Medication Instructions Recorded Confirmed Type acetaminophen 325 mg tablet 325 mg PO Q8H PRN 06/21/19 05/07/20 History inhalational spacing device #1 each 06/21/19 05/07/20 History irbesartan 150 mg tablet 150 mg PO DAILY 06/21/19 05/07/20 History memantine 5 mg tablet 5 mg PO QAM 06/21/19 05/07/20 History multivitamin 1 tablet PO DAILY 06/21/19 05/07/20 History triamcinolone acetonide 0.1 % 1 applic TOPICAL TID 06/21/19 05/07/20 History topical cream cetirizine 10 mg tablet 10 mg PO DAILY PRN tablet 06/26/19 05/07/20 History citalopram 40 mg tablet 40 mg PO DAILY tablet 06/26/19 05/07/20 History docusate sodium 100 mg capsule 100 mg PO BID PRN 06/26/19 05/07/20 History polyethylene glycol 3350 17 gram 17 gm PO DAILY 06/26/19 05/07/20 History oral powder packet menthol [Biofreeze (menthol)] 1 applic TOPICAL PRN PRN 08/06/19 05/07/20 History white petrolatum [Aquaphor Healing] 1 applic TOPICAL BID PRN 08/06/19 05/07/20 History clopidogrel 75 mg tablet 75 mg PO DAILY #90 tablet 11/12/19 05/07/20 Rx Lactobacillus acidophilus 1 tablet PO DAILY #90 tablet 01/09/20 05/07/20 Rx hydroxyzine HCl 25 mg tablet 25 mg PO ONCE #90 tablet 01/09/20 05/07/20 Rx levothyroxine 75 mcg tablet 75 mcg PO DAILY #90 tablet 01/09/20 05/07/20 Rx metoprolol succinate 50 mg 50 mg PO DAILY #90 tablet 01/09/20 05/07/20 Rx tablet,extended release 24 hr lidocaine [Aspercreme (lidocaine 1 patch TOPICAL TID PRN 05/07/20 05/07/20 History HCl)] Allergies Allergy/AdvReac Typ
--- NOTE | 2020-05-10 13:48 | PM.IMPN ---
Progress Note: A&P Assessment and Plan (1) Strain of right iliopsoas muscle: Code(s): S76.911A - Strain of unspecified muscles, fascia and tendons at thigh level, right thigh, initial encounter Status: Acute Assessment and Plan: Pelvis MRI was ordered given CT pelvis findings of asymmetric swelling of the right iliacus muscle in the setting of severe RLE groin/thigh/hip pain with weakness with right hip flexion. Pelvis MRI demonstrates complete tear of the right iliopsoas tendon at the lesser trochanter of the proximal right femur and grade 2 strain of the right iliacus and psoas muscle. There is a hematoma along the torn tendon. Etiology is unclear and may be spontaneous. She reports hx of falls in the past but does not note a precipitating fall 2 weeks ago when the pain started. Orthopedic surgery was consulted. Medrol dose pack was initiated. Plan to continue supportive care with Kpad and analgesics as needed. She will need to continue PT/OT and will need post-acute placement for rehab prior to returning to assisted living. (2) Hematoma of right iliopsoas muscle: Code(s): S70.11XA - Contusion of right thigh, initial encounter Status: Acute Assessment and Plan: As above. H&H are stable with no evidence of ongoing bleeding. Lovenox was discontinued. (3) Weakness of right foot: Code(s): R29.898 - Other symptoms and signs involving the musculoskeletal system Status: Resolved Assessment and Plan: She had limitation lifting the right foot initially. This has resolved and may be due to better pain control. Continue to monitor. (4) DJD (degenerative joint disease) of knee: Qualifiers: Laterality: bilateral Osteoarthritis type: primary Qualified Code(s): M17.0 - Bilateral primary osteoarthritis of knee Code(s): M17.10 - Unilateral primary osteoarthritis, unspecified knee Status: Acute Assessment and Plan: Plain films of the right knee demonstrated mild to moderate osteoarthritis with small effusion and no acute fracture. She sees Dr. Newton for Gelsyn injections. She reports no acute knee pain at this time. Continue conservative treatment with Kpad and analgesics as needed. Continue outpatient follow-up with Dr. Newton. (5) Bacteriuria: Code(s): R82.71 - Bacteriuria Status: Acute Assessment and Plan: Urinalysis was suspicious for UTI and urine culture demonstrates E. coli which is pansensitive with the exception of cefazolin. Cefdinir was started yesterday. She does note increased urinary frequency. Plan to continue cefdinir for 5 days. (6) Muscle spasm: Code(s): M62.838 - Other muscle spasm Status: Acute Assessment and Plan: Continue conservative therapy with Kpad, cyclobenzaprine, analgesics, and PT/OT. (7) Acute kidney injury superimposed on chronic kidney disease: Code(s): N17.9 - Acute kidney failure, unspecified; N18.9 - Chronic kidney disease, unspecified Status: Acute Assessment and Plan: BUN 32 and Cr 1.7 at presentation to the emergency department. Baseline Cr appears to be 1.3-1.9 and GFR 25-39 on review of prior labs. She received gentle IV hydration which was discontinued 05/09. Cr is 1.3 and BUN 29. Continue to monitor. Avoid nephrotoxins and renally dose medications. (8) Dementia: Code(s): F03.90 - Unspecified dementia without behavioral disturbance Status: Inactive Assessment and Plan: Continue memantine. (9) Depression: Code(s): F32.9 - Major depressive disorder, single episode, unspecified Status: Inactive Assessment and Plan: Mood is stable. Continue citalopram. (10) Hypothyroid: Code(s): E03.9 - Hypothyroidism, unspecified Status: Acute Assessment and Plan: TSH is normal at 0.832. Continue levothyroxine. (11) HTN (hypertension), benign: Code(s): I10
[2020-05-10 14:00] VITALS: BP 131/57; PULSE 58; RESP 16; TEMP 36.2; O2SAT 100
[2020-05-10] MEDS: oxyCODONE HCL (*CRX) 2.5 MG TAB IR PO (15:24)
[2020-05-10 22:00] VITALS: BP 134/50; PULSE 60; RESP 18; TEMP 36.6; O2SAT 98
[2020-05-11] MEDS: ACETAMINOPHEN 500 MG TABLET 1000 MG PO ×3 (00:38→12:52)
[2020-05-11 06:00] VITALS: BP 151/55; PULSE 57; RESP 18; TEMP 37.1; O2SAT 98
[2020-05-11] MEDS: LEVOTHYROXINE SODIUM 75 MCG TABLET PO (06:01)
[2020-05-11] MEDS: TRIAMCINOLONE ACET 0.1% CREAM 15 GM TUBE 1 APPLIC TOPICAL (06:01)
[2020-05-11] MEDS: methylPREDNISolone (MEDROL) DOSEPACK 4 MG TABLETS PO ×2 (06:02→12:51)
[2020-05-11] MEDS: CEFDINIR 300 MG CAPSULE PO (08:20)
[2020-05-11] MEDS: DOCUSATE SODIUM 100 MG CAPSULE PO (08:20)
[2020-05-11] MEDS: CLOPIDOGREL BISULFATE 75 MG TABLET PO (08:20)
[2020-05-11] MEDS: IRBESARTAN 150 MG TABLET PO (08:20)
[2020-05-11] MEDS: CITALOPRAM HYDROBROMIDE 20 MG TABLET 40 MG PO (08:20)
[2020-05-11] MEDS: ACIDOPHILUS/BULGARICUS CHEWABLE TABLET 1 TABLET PO (08:20)
[2020-05-11 08:21] VITALS: PULSE 60
[2020-05-11] MEDS: METOPROLOL SUCCINATE EXT REL 50 MG TABCR PO (08:21)
[2020-05-11] MEDS: MEMANTINE 5 MG TABLET PO (08:21)
[2020-05-11] MEDS: LIDOCAINE 5% PATCH 1 PATCH TRANSDERM (08:21)
[2020-05-11] MEDS: MULTIVITAMINS THERAPEUTIC TAB (*BKC) 1 TABLET PO (08:22)
[2020-05-11] MEDS: EUCERIN CREAM 120 GM JAR 1 APPLIC TOPICAL (08:22)
--- NOTE | 2020-05-11 12:31 | PM.DS ---
DS: Admitting Diagnosis Admitting Diagnosis Admitting Diagnosis: intractable hip pain DS: Discharge Diagnosis Discharge Diagnosis (1) Strain of right iliopsoas muscle: Code(s): S76.911A - Strain of unspecified muscles, fascia and tendons at thigh level, right thigh, initial encounter Status: Acute Assessment and Plan: Discharge Summary (Date of service 05/11/20): Mrs. Dailey is an 85 y.o. female with PMH significant for dementia, HTN, hypothyroidism, degenerative joint diseaase, and HLD who presented to the emergency department from [facility] due to right lower extremity pain for 2 weeks. She reported pain in the inguinal and right hip area with radiation down the leg, worse with movement. She reported no precipitating trauma or fall prior to onset of pain. Vitals were stable on presentation. Initial workup in the emergency department was notable for WBC 11,300 with monocyte predominance, Cr 1.7, and BUN 32. UA showed 2+ leukocyte esterase, WBC clumbs, 4+ bacteria, and hyaline casts. Plain right knee films showed osteoarthritis with small joint effusion and no fracture. Right hip and pelvis plain films showed osteoarthritis and were negative for fracture/malalignment. She was admitted given intractable pain and limited ROM. CT pelvis showed asymmetric swelling of the right iliacus muscle in the setting of severe RLE groin/thigh/hip pain with weakness with right hip flexion. Pelvis MRI was ordered given those findings and demonstrated a complete tear of the right iliopsoas tendon at the lesser trochanter of the proximal right femur and grade 2 strain of the right iliacus and psoas muscle with a hematoma along the torn tendon. Etiology was unclear and may be spontaneous. She reports hx of falls in the past but does not note a precipitating fall 2 weeks ago when the pain started. Orthopedic surgery was consulted and ordered lumbar spine MRI. Medrol dose pack was initiated. Supportive care was continued with Kpad and analgesics as needed. PT/OT were initiated given orthopedic surgery recommendation. Her pain and ROM improved significantly. Lumbar spine MRI demonstrated a subcentimeter indeterminate lesion of L3 (could be small Schmorl's node, atypical hemangioma, or metastatic disease). I discussed this finding with the patient and her daughter. The patient has no known hx of cancer. Hematology/oncology and or bone scan may be considered in the outpatient setting and this will be deferred to her PCP. I also ordered urine and serum protein electrophoresis and immunofixation. Unfortunately, she had already eaten prior to the labs being drawn while inpatient so she was given orders to have these completed outpatient and will need to follow-up with her PCP and orthopedic surgery. She was accepted to [facility] to continued PT/OT. She was discharged in stable condition on 05/11/20. (2) Hematoma of right iliopsoas muscle: Code(s): S70.11XA - Contusion of right thigh, initial encounter Status: Acute Assessment and Plan: Secondary to complete tear of the right iliopsoas tendon. H&H remained stable with no evidence of ongoing bleeding. (3) Lesion of lumbar spine: Code(s): M89.9 - Disorder of bone, unspecified Status: Acute Assessment and Plan: MRI demonstrated a subcentimeter indeterminate lesion of L3 (could be small Schmorl's node, atypical hemangioma, or metastatic disease). The patient has no known hx of cancer. Hematology/oncology and or bone scan may be considered in the outpatient setting and this will be deferred to her PCP. I also ordered urine and serum protein electrophoresis and immunofixation. Unfortunately, she had already eaten prior to the labs being drawn while inpatient so she was given orders to have these completed outpatient and will need to follow-up with her PCP and orthopedic surgery. (4) Weakness of right foot: Code(s): R29.898 - Other symptoms and si
[2020-05-11 14:00] VITALS: BP 133/57; PULSE 86; RESP 18; TEMP 37.1; O2SAT 99
== END 2020-05-11 15:50 ==
LOC: ANHED 18:53 → ANH3MEDSUR 19:01
PROVIDERS: Family Medicine; Physician Assistant; Student in an Organized Health Care Education/Training Program; Admitting Provider Family Medicine; Emergency Provider Emergency Medicine; PCP Nurse Practitioner Family; Visit Provider Family Medicine
DX: S76.911A Strain of unspecified muscles, fascia and tendons at thigh level, right thigh, initial encounter (principal); S70.11XA Contusion of right thigh, initial encounter; M89.9 Disorder of bone, unspecified; M47.816 Spondylosis without myelopathy or radiculopathy, lumbar region; M25.551 Pain in right hip; M25.561 Pain in right knee; M17.0 Bilateral primary osteoarthritis of knee; M79.89 Other specified soft tissue disorders; G89.29 Other chronic pain; R82.71 Bacteriuria; M62.838 Other muscle spasm; R29.898 Other symptoms and signs involving the musculoskeletal system; N17.9 Acute kidney failure, unspecified; X58.XXXA Exposure to other specified factors, initial encounter; F03.90 Unspecified dementia, unspecified severity, without behavioral disturbance, psychotic disturbance, mood disturbance, and anxiety; I13.0 Hypertensive heart and chronic kidney disease with heart failure and stage 1 through stage 4 chronic kidney disease, or unspecified chronic kidney disease; I50.9 Heart failure, unspecified; N18.9 Chronic kidney disease, unspecified; E78.5 Hyperlipidemia, unspecified; E03.9 Hypothyroidism, unspecified; Z86.73 Personal history of transient ischemic attack (TIA), and cerebral infarction without residual deficits; Z79.02 Long term (current) use of antithrombotics/antiplatelets; F32.9 Major depressive disorder, single episode, unspecified; Z66 Do not resuscitate; Z20.828 Contact with and (suspected) exposure to other viral communicable diseases
CPT/HCPCS: 36415; 72148; 72192; 72195; 73502; 73562; 73620; 80048; 81001; 82607; 82746; 83735; 84443; 85025; 85027; 86140; 87077; 87086; 87088; 87186; 87635; 93970; 96374; 96375; 96376; 97110; 97116; 97161; 97165; 97530; 97535; 99285; A9270; C9803; G0378; J0131; J1650; J2270; J3360; J7030; U0003

== ENCOUNTER 2021-01-09 09:47 | Outpatient (CLI) | payer MEDICARE, SELFPAY ==
--- NOTE | 2021-01-09 17:55 | P.PCNPFT_ITS ---
PFT Procedure Performed PFT Procedure Performed Plethysmography (Lung Vol) Diffusing Cap (DLCO) Flow Vol Loop Spirometry w/o Bronchodil PFT Interpretation This is a pulmonary function test with spirometry, plethysmography and diffusing capacity. The test was performed and results interpreted in accordance with the 2019 and 2005 ATS/ERS Task Force guidelines respectively using the Global Lung Function Initiative-2012 reference equations. Patient demonstrated good effort and cooperation. Reproducibility criteria were met. The quality of the spirometry maneuver was Grade B. Findings: Spirometry: There is decreased maximal expiratory airflow at all lung volumes with a concave expiratory flow tracing. The FVC is 1.57 L, 67% predicted. The FEV1 is 1.05, 59% predicted. The FEV1: FVC ratio is 67%. Plethysmography: The total lung capacity is 3.56 L, 73% predicted. The functional residual capacity is 1.41 L, 50% predicted. The residual volume is 1.33, 55% predicted. Diffusing capacity: The absolute diffusion capacity is 12.1, 65% predicted. The diffusing capacity corrected for alveolar volume is 4.76, 116% predicted. Impression: There is a combined obstructive and restrictive ventilatory abnormality. There are no guidelines to assign the severity of obstruction and restriction with a combined abnormality. In my opinion, given the concave expiratory flow tracing and moderately decreased FEV1:FVC ratio and mild restrictive abnormality I would state there is a moderate obstructive abnorm ality and a mild restrictive abnormality resulting in a moderately severe decreased FEV1. The diffusing capacity is normal There are no prior studies for comparison
== END 2021-01-09 09:48 | disposition home or self-care (01) ==
PROVIDERS: PCP Nurse Practitioner Family; Visit Provider Nurse Practitioner Family
DX: R06.00 Dyspnea, unspecified (principal); R94.2 Abnormal results of pulmonary function studies
CPT/HCPCS: 94375; 94726; 94729

== ENCOUNTER 2021-05-29 09:57 | Outpatient (CLI) | payer MEDICARE, SELFPAY ==
--- NOTE | ~2021-05-29 | CT_ITS ---
EXAMINATION: CT chest high resolution wo ks DATE: 05/29/2021 10:51 INDICATION: Wheezing TECHNIQUE: Computed tomography (CT) of the chest was performed without intravenous contrast. The dose -length product (DLP) was 205.27 mGy-cm. Automated exposure control and iterative reconstruction tech nique were employed. COMPARISON: None FINDINGS: There is a 5 mm nodule of the right upper lobe on image 47. There is a 2 mm nodule of the l eft lower lobe on image 66. These likely are present The lungs are free of focal airspace opacities. There is no pleural effusion or pneumothorax. No pathologically enlarged thoracic lymph nodes are rosa ntified. Cardiomegaly is noted. Calcified coronary artery atherosclerosis is noted. The gallbladder i s surgically absent. There is a partially imaged 4.2 cm cyst of the right kidney. An 8 mm cyst is not ed in the left hepatic lobe. There is moderate thoracic spondylosis. IMPRESSION: 1. No CT correlate for the patient's symptoms. Reviewed, dictated and finalized at location B. [facility]
== END 2021-05-29 09:58 | disposition home or self-care (01) ==
PROVIDERS: PCP Nurse Practitioner Family; Visit Provider Student in an Organized Health Care Education/Training Program
DX: R06.2 Wheezing (principal)
CPT/HCPCS: 71250

== ENCOUNTER 2021-06-10 12:21 | Outpatient (CLI) | payer MEDICARE, SELFPAY ==
--- NOTE | 2021-06-10 14:59 | WPDPFTINT ---
PFT Procedure Performed PFT Procedure Performed Spirometry with Pre/Post Bronchodilator Plethysmography (Lung Vol) Flow Vol Loop PFT Interpretation This is a pulmonary function test with pre and post-bronchodilator spirometry, and plethysmography. The test was performed and results interpreted in accordance with the 2019 and 2005 ATS/ERS Task Force guidelines respectively using the Global Lung Function Initiative-2012 reference equations. Patient demonstrated good effort and cooperation. Reproducibility criteria were met. The quality of the pre bronchodilator spirometry maneuver was Grade A and post bronchodilator spirometry maneuver was Grade A. The patient was unable to perform the dL CO maneuver. Findings: Spirometry: The contour the inspiratory and expiratory flow tracing are normal. The pre bronchodilator FVC is 1.40 L, 81% predicted. The pre bronchodilator FEV1 is 1.00 L, 76% predicted. The FEV1: FVC ratio 71%. The post bronchodilator FVC is 1.43 L, representing a 2% increase. The post bronchodilator FEV1 is 1.11 L, representing 11% increase. The post bronchodilator FEV1: FVC ratio 77%. Plethysmography: The total lung capacity is 3.31 L, 89% predicted. The functional residual capacity is 2.24 L, 105% predicted. The residual volume is 1.88 L, 92% predicted. Impression: The spirometry is normal without evidence of an obstructive abnormality. There is no significant improvement after inhaling a single dose of albuterol. The lung volumes are normal. There are no prior studies for comparison
== END 2021-06-10 12:22 | disposition home or self-care (01) ==
PROVIDERS: PCP Nurse Practitioner Family; Visit Provider Student in an Organized Health Care Education/Training Program
DX: R05.9 Cough, unspecified (principal); R06.2 Wheezing
CPT/HCPCS: 94060; 94726